=== PATIENT | female | born 1995 | race African-American/Black ===

== ENCOUNTER 2016-09-07 15:23 | Emergency (ER) | payer OTHER ==
[2016-09-07 15:28] VITALS: BP 133/74; PULSE 95; TEMP 98; BMI 27.8
--- NOTE | 2016-09-07 16:34 | PDOC ---
History of Present Illness - General Chief Complaint: Cold Symptoms Stated Complaint: THROAT PAIN Time Seen by Provider: 09/07/16 15:55 History Source: Patient Exam Limitations: No Limitations ( ) - History of Present Illness Initial Comments: 09/07/16 16:52 Chief complaint: Of, nasal congestion, swollen lymph node and sore throat 09/07/16 16:53 History of present illness: Patient is a 21-year-old female with no significant medical history here today complaining of having a productive cough with greenish sputum times one month with nasal congestion and sore throat intermittently with swollen lymph node left postauricular 1 month. Patient denies any difficulty swallowing or breathing or any shortness of breath. Patient denies having fever recently but did originally approximately 3-4 weeks ago with chills and body aches. Patient denies being sexually active ever and just finished her and menses yesterday. Timing/Duration: changing over time Severity: moderate Associated Symptoms: reports: cough (productive greenish for one month ), other (nasal congestion, swelling lymph node behind left ear) Past History - Past Medical History Allergies/Adverse Reactions: Allergies Allergy/AdvReac Type Severity Reaction Status Date / Time No Known Allergies Allergy Verified 09/07/16 15:28 Home Medications: Ambulatory Orders Azithromycin [Zithromax 250mg Tablets -] 250 mg PO UTDICT #6 tab 09/07/16 Fexofenadine HCl [Lissette Allergy] 180 mg PO DAILY #10 tablet 09/07/16 Fluticasone Prop 0.05% Nasal [Flonase -] 2 spray NS DAILY #1 spray.pump MDD 1 Guaifenesin Dm [Mucinex Dm -] 1 tab PO Q12H PRN #10 tab.er.12h MDD 2 09/07/16 - Psycho/Social/Smoking Cessation Hx Suicidal Ideation: No Smoking History: Never smoked Information on smoking cessation initiated: No Review of Systems - Review of Systems Able to Perform ROS?: Yes Constitutional: No: Symptoms Reported HEENTM: Yes: Ear Pain (left ear pooping sensation at times ), Nose Congestion ( for one month), Throat Pain Respiratory: Yes: Productive cough (greenish phelgm ). No: Orthopnea, Shortness of Breath, SOB with Exertion, SOB at Rest, Stridor, Wheezing Cardiac (ROS): No: Symptoms Reported ABD/GI: No: Symptoms Reported : No: Symptoms Reported Musculoskeletal: No: Symptoms Reported Integumentary: No: Symptoms Reported Hematologic/Lymphatic: Yes: Lymph Node Abnormalities (post auricular node left ) *Physical Exam - Vital Signs Last Vital Signs Temp Pulse Resp BP Pulse Ox 98 F 95 H 18 133/74 100 09/07/16 15:25 09/07/16 15:25 09/07/16 15:25 09/07/16 15:25 09/07/16 15:25 - Physical Exam General Appearance: Yes: Appropriately Dressed HEENT: positive: TMs Normal, Tonsillar Erythema (enlarged b/l with no uvular deviation ), Nasal Congestion (b/l ), Other (no salivary stones palpated left sided ). negative: Tonsillar Exudate, Rhinorrhea, Sinus Tenderness Neck: positive: Lymphadenopathy (L) (post auricular node swelling, firm, tender , slightly mobile). negative: Lymphadenopathy (R) Respiratory/Chest: positive: Lungs Clear, Normal Breath Sounds. negative: Chest Tender, Respiratory Distress Cardiovascular: positive: Regular Rhythm, Regular Rate, S1, S2 Lymphatic: positive: Tenderness (left post auricular enlarge, firm) Integumentary: positive: Normal Color Neurologic: positive: Alert, Normal Response, Responsive. negative: Respond to painful stimul Medical Decision Making - Medical Decision Making 09/07/16 16:55 Pt. is a 22-year-old female with h/o asthma here today with report of having a productive cough greenish sputum 1 month and nasal congestion. Patient also reports having lower back pain intermittent times one month. Patient denies any radiation of pain down the legs or any numbness of legs or any incontinency or any saddle anesthesia. Patient denies any shortness of breath or any wheezing. Patient denies any fever. Patient reports that she started on Zyrtec and a Z- Rao 3 days ago however she continues to have a cough and slight nasal congestion. Patient has not been taking anything for her lower back pain. Patient denies any heavy lifting or injury to her lower back. SHe denies any recent travel. Patient reports that back pain currently as a 5 out of 10 with movement. She denies any wheezing or shortness of breath. She reports having an IUD however did not have her menstrual cycle in July. Nasal congestion, tonsillitis rule out strep throat Bronchitis Lymphadenopathy left postauricular lymph node Plan: Throat C&S rapid Decadron 10 mg by mouth now Ibuprofen 600 mg by mouth now Monoscreen 09/07/16 17:03 *DC/Admit/Observation/Transfer Diagnosis at time of Disposition: Bronchitis, Nasal congestion, Lymphangiopathy Diagnosis at time of Disposition: (Ruled Out): Bronchitis after surgery - Discharge Dispostion Disposition: HOME Condition at time of disposition: Stable - Referrals Referrals: Chris Sprague MD [Staff Physician] - - Patient Instructions Additional Instructions: Follow-up with ear nose and throat for further evaluation this week Take ibuprofen as needed as directed by outside machinist apprentice for pain Follow-up with your primary care provider this week Return to emergency room if any difficulty swallowing or breathing You may call the lab line tomorrow to find out results of mono testing Patient voiced understanding of discharge instructions and all questions were answered
[2016-09-07] MEDS ORDERED: DEXAMETHASONE LIQUID 0.5 MG/5 ML 240 ML BULK BOTTLE PO ONE (16:54)
[2016-09-07] MEDS ORDERED: IBUPROFEN 600 MG TABLET (FP) PO ONE ×2 (16:55→17:00)
[2016-09-07] MEDS ORDERED: DEXAMETHASONE SOD PHOSPHATE 10 MG/1 ML VIAL ONE (17:00)
== END 2016-09-07 18:56 | disposition home or self-care (01) ==
LOC: JERFT 15:23
DX: J20.9 Acute bronchitis, unspecified (principal); R59.0 Localized enlarged lymph nodes
CPT/HCPCS: 36415; 86308; 87070; 87430; 99281-25